=== PATIENT | female | born 1965 | race American Indian/Alaskan Native ===

== ENCOUNTER 2016-11-06 17:14 | Emergency (ER) | payer OTHER ==
[2016-11-06] MEDS ORDERED: ERYTHROMYCIN OPHTH OINT As Ordered ONE (19:02)
--- NOTE | 2016-11-06 19:53 | EDDOCDS ---
Physician Documentation [facility] Name: Asya Cox Age: 51 yrs Sex: Female : 1965 Arrival Date: 11/06/2016 Time: 17:14 Bed TR7 Private MD: Virgilio Diaz R Disposition: 11/06/16 19:05 Discharged to Home/Self Care. Impression: Unspecified acute conjunctivitis, left eye. - Condition is Stable. - Discharge Instructions: Conjunctivitis (Viral and Bacterial), Bacterial Conjunctivitis. - Medication Reconciliation, Local Pharmacy Hours form. - Follow up: Virgilio Diaz; When: Call to arrange an appointment; Reason: Recheck today's complaints, Continuance of care. - Problem is new. - Symptoms are unchanged. Historical: - Allergies: No known drug Allergies; - Home Meds: 1. Zoloft 100 mg Oral tab 2 tabs twice a day 2. Bystolic 10 mg oral tab 1 tab once daily 3. clonazepam 0.5 mg Oral tab 1 tab four times a day 4. Metformin Oral Unknown 2 times per day pt takes it when she feels like it - PMHx: Depression; Diabetes - NIDDM: controlled; Hypertension; PTSD; - PSHx: Hysterectomy; Gall Bladder Removal; Hernia repair; X2; Tonsillectomy; - Social history: Smoking status: Patient uses tobacco products, heavy tobacco smoker. No barriers to communication noted, The patient speaks fluent Prydein[place], Speaks appropriately for age. - : The pt / caregiver states he / she is not on anticoagulants. Home medication list is obtained from the patient. - Exposure Risk Screening:: None identified. 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 3 in. (160.02 cm); Pain 3/10; 17:16 Body Mass Index 32.24 (82.55 kg, 160.02 cm) jrd MDM: 19:00 erythromycin Ointment 1 applic Ophthalmic once ordered. mo1 19:11 Financial registration complete. gjb 19:23 [facility] Payment Agreement was scanned into [place] and attached to record. bharathi Administered Medications: 19:04 Drug: erythromycin 1 applic [erythromycin 5 mg/gram (0.5 %) eye ointment (1 applic)] js13 Route: Ophthalmic; Site: left eye; Signatures: Alessandro Adams PA PA mo1 Becker, JoshuaRN Danuta Gaitan Jennifer RN js13 The chart was reviewed and I authenticate all verbal orders and agree with the evaluation and treatment provided.Attachments: 19:23 [facility] Payment Agreement bharathi MTDD
--- NOTE | 2016-11-06 19:53 | EDDOCDS ---
Nurse's Notes [facility] Name: Asya Cox Age: 51 yrs Sex: Female : 1965 Arrival Date: 11/06/2016 Time: 17:14 Bed TR7 Private MD: Virgilio Diaz R Diagnosis: Unspecified acute conjunctivitis, left eye Presentation: 11/06 17:20 Presenting complaint: Patient states: Patient reports that she thinkgs she has pink jmb eye. PAtient reports symptoms present for two days. Patient sensitive to light. Patient reports "puffiness" and drainage from eye. Mechanism of Injury: No Mechanism of Injury. The patient denies any loss of vision. Adult Sepsis Screening: The patient does not have new or worsening altered mentation. Patient's respiratory rate is less than 22. Systolic blood pressure is greater than 100. Patient has a qSOFA score of 0- Negative Sepsis Screen. Suicide/Homicide risk assessment- the patient denies having any suicidal and/or homicidal ideations and does not present with any other emotional, behavioral or mental health complaints. Status: Patient is not a relocation services specialist or dependent. Transition of care: patient was not received from another setting of care. 17:20 Acuity: LIV Level 4 b 17:20 Method Of Arrival: Walkin/Carried/Asstd b Triage Assessment: 17:21 General: Appears in no apparent distress, Behavior is appropriate for age, cooperative. jmb Pain: Denies pain. HIV screening NA for this visit Offered previously. Neurological: Level of Consciousness is awake, alert, obeys commands, Oriented to person, place, time, Speech is normal, Facial symmetry appears normal, Facial symmetry: tongue is midline. EENT: Sclera/Cornea are reddened in outer aspect of conjuctiva of left eye, iris of left eye and inner aspect of conjunctiva of left eye. Respiratory: Airway is patent Respiratory effort is even, unlabored, Respiratory pattern is regular, symmetrical. Derm: Skin is pink, warm & dry. Musculoskeletal: Range of motion intact in all extremities. 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 Zoloft 100 mg Oral tab 2 tabs twice a day 2. Bystolic 10 mg oral tab 1 tab once daily 3. clonazepam 0.5 mg Oral tab 1 tab four times a day 4. Metformin Oral Unknown 2 times per day pt takes it when she feels like it - PMHx: Depression; Diabetes - NIDDM: controlled; Hypertension; PTSD; - PSHx: Hysterectomy; Gall Bladder Removal; Hernia repair; X2; Tonsillectomy; - Social history: Smoking status: Patient uses tobacco products, heavy tobacco smoker. No barriers to communication noted, The patient speaks fluent Faroese, Speaks appropriately for age. - : The pt / caregiver states he / she is not on anticoagulants. Home medication list is obtained from the patient. - Exposure Risk Screening:: None identified. Vital Signs: 17:16 BP 145 / 100 RA Sitting (auto/reg); Pulse 62; Resp 18; Temp 99.2(O); Pulse Ox 97% on jrd R/A; Weight 82.55 kg (M); Height 5 ft. 3 in. (160.02 cm); Pain 3/10; 17:16 Body Mass Index 32.24 (82.55 kg, 160.02 cm) [facility] Vitals: 17:16 Log In Time: November 06, 2016 at 17:[address] [facility] ED Course: 17:15 Patient visited by Brandon Crespo PCA. jrd 17:15 Patient moved to Waiting jrd 17:16 Virgilio Diaz is Private Physician. jrd 17:19 Patient visited by Brandon Crespo PCA. jrd 17:19 Patient moved to Pre RCE jrd 17:20 Triage Initiated jmb 18:18 Patient moved to Triage 2 js13 18:31 Patient visited by Gallito Walker RN. ml6 18:45 Alessandro Adams PA is PHCP. mo1 18:45 Teresita Bansal MD is Attending Physician. mo1 19:01 Patient visited by Alessandro Adams PA. mo1 19:05 Virgilio Diaz is Referral Physician. mo1 19:08 Patient moved to TR7 mo3 19:23 [facility] Payment Agreement was scanned into [employer] and attached to record. gjb Administered Medications: 19:04 Drug: erythromycin 1 applic [erythromycin 5 mg/gram (0.5 %) eye ointment (1 applic)] [facility] Route: Ophthalmic; Site: left eye; Order Results: There are currently no results for this order. Outcome: 19:05 Discharge ordered by Provider. mo1 19:52 Patient left the ED. jacek Signatures: Gallito Walker, RN RN ml6 Melissa Skinner, [facility] ar3 Kiki Gay,RN RN js13 Alessandro Adams PA PA mo1 Alfonso Roper RN RN jmb [place], Joseph, [facility] Danuta Carnes MTDD
--- NOTE | 2016-11-08 20:53 | EDDOCDS ---
Physician Documentation [facility] Name: Asya Cox Age: 51 yrs Sex: Female : 1965 Arrival Date: 11/06/2016 Time: 17:14 Bed TR7 Private MD: Virgilio Diaz R Disposition: 11/06/16 19:05 Discharged to Home/Self Care. Impression: Unspecified acute conjunctivitis, left eye. - Condition is Stable. - Discharge Instructions: Conjunctivitis (Viral and Bacterial), Bacterial Conjunctivitis. - Medication Reconciliation, Local Pharmacy Hours form. - Follow up: Virgilio Diaz; When: Call to arrange an appointment; Reason: Recheck today's complaints, Continuance of care. - Problem is new. - Symptoms are unchanged. Historical: - Allergies: No known drug Allergies; - Home Meds: 1. Zoloft 100 mg Oral tab 2 tabs twice a day 2. Bystolic 10 mg oral tab 1 tab once daily 3. clonazepam 0.5 mg Oral tab 1 tab four times a day 4. Metformin Oral Unknown 2 times per day pt takes it when she feels like it - PMHx: Depression; Diabetes - NIDDM: controlled; Hypertension; PTSD; - PSHx: Hysterectomy; Gall Bladder Removal; Hernia repair; X2; Tonsillectomy; - Social history: Smoking status: Patient uses tobacco products, heavy tobacco smoker. No barriers to communication noted, The patient speaks fluent Russian, Speaks appropriately for age. - : The pt / caregiver states he / she is not on anticoagulants. Home medication list is obtained from the patient. - Exposure Risk Screening:: None identified. 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 3 in. (160.02 cm); Pain 3/10; 17:16 Body Mass Index 32.24 (82.55 kg, 160.02 cm) jrd MDM: 19:00 erythromycin Ointment 1 applic Ophthalmic once ordered. mo1 19:11 Financial registration complete. gjb 19:23 [facility] Payment Agreement was scanned into [employer] and attached to record. [facility] 11/07 11:25 T-Sheet-- Draft Copy was scanned into [employer] and attached to record. gb Administered Medications: 11/06 19:04 Drug: erythromycin 1 applic [erythromycin 5 mg/gram (0.5 %) eye ointment (1 applic)] js13 Route: Ophthalmic; Site: left eye; Signatures: Amparo Arteaga, Matt Reg Alessandro Reis PA PA mo1 Becker, Joshua, RN RN Danuta Hampton Jennifer RN js13 The chart was reviewed and I authenticate all verbal orders and agree with the evaluation and treatment provided.Attachments: : [facility] Payment Agreement [facility] 11/07 11:25 T-Sheet-- Draft Copy gb Chart Complete MTDD
--- NOTE | 2016-11-08 20:53 | EDDOCDS ---
Physician Documentation [facility] Name: Asya Cox Age: 51 yrs Sex: Female : 1965 Arrival Date: 11/06/2016 Time: 17:14 Bed TR7 Private MD: Virgilio Diaz R Disposition: 11/06/16 19:05 Discharged to Home/Self Care. Impression: Unspecified acute conjunctivitis, left eye. - Condition is Stable. - Discharge Instructions: Conjunctivitis (Viral and Bacterial), Bacterial Conjunctivitis. - Medication Reconciliation, Local Pharmacy Hours form. - Follow up: Virgilio Diaz; When: Call to arrange an appointment; Reason: Recheck today's complaints, Continuance of care. - Problem is new. - Symptoms are unchanged. Historical: - Allergies: No known drug Allergies; - Home Meds: 1. Zoloft 100 mg Oral tab 2 tabs twice a day 2. Bystolic 10 mg oral tab 1 tab once daily 3. clonazepam 0.5 mg Oral tab 1 tab four times a day 4. Metformin Oral Unknown 2 times per day pt takes it when she feels like it - PMHx: Depression; Diabetes - NIDDM: controlled; Hypertension; PTSD; - PSHx: Hysterectomy; Gall Bladder Removal; Hernia repair; X2; Tonsillectomy; - Social history: Smoking status: Patient uses tobacco products, heavy tobacco smoker. No barriers to communication noted, The patient speaks fluent Northern Irish, Speaks appropriately for age. - : The pt / caregiver states he / she is not on anticoagulants. Home medication list is obtained from the patient. - Exposure Risk Screening:: None identified. 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 3 in. (160.02 cm); Pain 3/10; 17:16 Body Mass Index 32.24 (82.55 kg, 160.02 cm) jrd MDM: 19:00 erythromycin Ointment 1 applic Ophthalmic once ordered. mo1 19:11 Financial registration complete. gjb 19:23 [facility] Payment Agreement was scanned into [employer] and attached to record. [facility] 11/07 11:25 T-Sheet-- Draft Copy was scanned into [employer] and attached to record. gb Administered Medications: 11/06 19:04 Drug: erythromycin 1 applic [erythromycin 5 mg/gram (0.5 %) eye ointment (1 applic)] js13 Route: Ophthalmic; Site: left eye; Signatures: Amparo Arteaga, Matt Reg Alessandro Reis PA PA mo1 Becker, Joshua, RN RN Danuta Hampton Jennifer RN js13 The chart was reviewed and I authenticate all verbal orders and agree with the evaluation and treatment provided.Attachments: : [facility] Payment Agreement [facility] 11/07 11:25 T-Sheet-- Draft Copy gb Chart Complete MTDD
--- NOTE | 2016-11-08 20:53 | EDDOCDS ---
Nurse's Notes [facility] Name: Asya Cox Age: 51 yrs Sex: Female : 1965 Arrival Date: 11/06/2016 Time: 17:14 Bed TR7 Private MD: Virgilio iDaz R Diagnosis: Unspecified acute conjunctivitis, left eye Presentation: 11/06 17:20 Presenting complaint: Patient states: Patient reports that she thinkgs she has pink jmb eye. PAtient reports symptoms present for two days. Patient sensitive to light. Patient reports "puffiness" and drainage from eye. Mechanism of Injury: No Mechanism of Injury. The patient denies any loss of vision. Adult Sepsis Screening: The patient does not have new or worsening altered mentation. Patient's respiratory rate is less than 22. Systolic blood pressure is greater than 100. Patient has a qSOFA score of 0- Negative Sepsis Screen. Suicide/Homicide risk assessment- the patient denies having any suicidal and/or homicidal ideations and does not present with any other emotional, behavioral or mental health complaints. 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 Transition of care: patient was not received from another setting of care. 17:20 Acuity: LIV Level 4 b 17:20 Method Of Arrival: Walkin/Carried/Asstd b Triage Assessment: 17:21 General: Appears in no apparent distress, Behavior is appropriate for age, cooperative. jmb Pain: Denies pain. HIV screening NA for this visit Offered previously. Neurological: Level of Consciousness is awake, alert, obeys commands, Oriented to person, place, time, Speech is normal, Facial symmetry appears normal, Facial symmetry: tongue is midline. EENT: Sclera/Cornea are reddened in outer aspect of conjuctiva of left eye, iris of left eye and inner aspect of conjunctiva of left eye. Respiratory: Airway is patent Respiratory effort is even, unlabored, Respiratory pattern is regular, symmetrical. Derm: Skin is pink, warm & dry. Musculoskeletal: Range of motion intact in all extremities. 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 Zoloft 100 mg Oral tab 2 tabs twice a day 2. Bystolic 10 mg oral tab 1 tab once daily 3. clonazepam 0.5 mg Oral tab 1 tab four times a day 4. Metformin Oral Unknown 2 times per day pt takes it when she feels like it - PMHx: Depression; Diabetes - NIDDM: controlled; Hypertension; PTSD; - PSHx: Hysterectomy; Gall Bladder Removal; Hernia repair; X2; Tonsillectomy; - Social history: Smoking status: Patient uses tobacco products, heavy tobacco smoker. No barriers to communication noted, The patient speaks fluent Martiniquais, Speaks appropriately for age. - : The pt / caregiver states he / she is not on anticoagulants. Home medication list is obtained from the patient. - Exposure Risk Screening:: None identified. Vital Signs: 17:16 BP 145 / 100 RA Sitting (auto/reg); Pulse 62; Resp 18; Temp 99.2(O); Pulse Ox 97% on jrd R/A; Weight 82.55 kg (M); Height 5 ft. 3 in. (160.02 cm); Pain 3/10; 17:16 Body Mass Index 32.24 (82.55 kg, 160.02 cm) [facility] Vitals: 17:16 Log In Time: November 06, 2016 at 17:15. [facility] ED Course: 17:15 Patient visited by Brandon Crespo PCA. jrd 17:15 Patient moved to Waiting jrd 17:16 Virgilio Diaz is Private Physician. jrd 17:19 Patient visited by Brandon Crespo PCA. jrd 17:19 Patient moved to Pre RCE jrd 17:20 Triage Initiated jmb 18:18 Patient moved to Triage 2 js13 18:31 Patient visited by Gallito Walker RN. ml6 18:45 Alessandro Adams PA is PHCP. mo1 18:45 Teresita Bansal MD is Attending Physician. mo1 19:01 Patient visited by Alessandro Adams PA. mo1 19:05 Virgilio Diaz is Referral Physician. mo1 19:08 Patient moved to TR7 ar3 19:23 [facility] Payment Agreement was scanned into [employer] and attached to record. gjb 11/07 11:25 T-Sheet-- Draft Copy was scanned into [employer] and attached to record. gb Administered Medications: 11/06 19:04 Drug: erythromycin 1 applic [erythromycin 5 mg/gram (0.5 %) eye ointment (1 applic)] js13 Route: Ophthalmic; Site: left eye; Order Results: There are currently no results for this order. Outcome: 19:05 Discharge ordered by Provider. mo1 19:52 Patient left the ED. jacek Signatures: Amparo Arteaga, Matt Reg Gallito Dacosta, RN RN ml6 Melissa Skinner, SEAT COVER CUTTER SEAT COVER CUTTER ar3 Kiki Gay,RN RN js13 Alessandro Adams PA PA mo1 Alfonso Roper RN RN keb Brandon Crespo, SEAT COVER CUTTER SEAT COVER CUTTER Danuta Polanco Chart Complete MTDD
== END 2016-11-06 19:52 | disposition home or self-care (01) ==
LOC: M ED 17:14
DX: H10.32 Unspecified acute conjunctivitis, left eye (principal); F32.9 Major depressive disorder, single episode, unspecified; E11.9 Type 2 diabetes mellitus without complications; I10 Essential (primary) hypertension; F43.10 Post-traumatic stress disorder, unspecified; Z72.0 Tobacco use; Z79.899 Other long term (current) drug therapy

== ENCOUNTER → 2016-12-14 | Outpatient (CLI) | payer OTHER ==
[~2016-12-14] MED LIST: GASTROGRAFIN SOLUTION 30ML (Q9963) As Ordered ONE; ISOVUE-370 76% 100ML VIAL (Q9967) As Ordered ONE
--- NOTE | 2016-12-14 15:15 | REP ---
Local: Abdominal pain and diarrhea. Technique: Axial contrast enhanced images from the lung bases to the pubic symphysis using oral and 100 ml Isovue 370 intravenous contrast material with coronal and sagittal re-formations. Comparison: None. Findings: The lung bases are clear. Visualized heart and pericardium normal. Liver, spleen, pancreas, bilateral adrenal glands and kidneys are normal. Evidence for prior cholecystectomy. The enteric system is without obstruction or acute inflammatory process. 2 cm fat containing periumbilical hernia. Pelvis demonstrates normal bladder and evidence for prior hysterectomy. No ascites. No free air. No adenopathy. Atherosclerotic changes of the aorta and vasculature noted without aneurysm. Musculoskeletal structures demonstrate degenerative changes to the lumbosacral spine. Impression: No acute intra-abdominal or pelvic pathology appreciated. No ascites. Signed by Antoine Mistry MD 12/14/2016 03:07 P
== END ==
LOC: M RAD 12:53
PROVIDERS: ATTEND Family Medicine
DX: R19.7 Diarrhea, unspecified (principal)